=== PATIENT | female | born 1955 | race Caucasian/White ===

== ENCOUNTER 2022-06-08 11:38 | Day surgery (SDC) | payer MEDICARE ==
[2022-06-08] VITALS (8 sets, daily range): BP systolic 140–156; BP diastolic 73–96
[~2022-06-08] VITALS: Ht 172.7 cm; Wt 76.2 kg
[~2022-06-08 11:38] MED LIST: NO HOME MEDS
[2022-06-08] MEDS ORDERED: LIDOcaine 1% 30ml preserv. free vial SQ STA (12:29)
[2022-06-08] MEDS ORDERED: LISI5TAB22 PO (12:42)
== END 2022-06-08 14:11 | disposition home or self-care (01) ==
LOC: SSTAY O 11:38
PROVIDERS: ATTEND Radiology Diagnostic Radiology
DX: K11.8 Other diseases of salivary glands (principal); Z85.3 Personal history of malignant neoplasm of breast; Z79.899 Other long term (current) drug therapy
CPT/HCPCS: 10005; 38505; 76942; 88173; 88305; A6449; J7030